=== PATIENT | female | born 1950 | race Caucasian/White ===

== ENCOUNTER 2017-10-16 06:16 | Inpatient (IN) | payer MEDICARE, OTHER ==
[2017-10-10 10:38] LABS: ABSOLUTE BASOPHILS 0.1 thou/uL (0.0-0.2); ABSOLUTE EOSINOPHILS 0.2 thou/uL (0.0-0.7); ABSOLUTE LYMPHOCYTES 2.1 thou/uL (0.8-5.3); ABSOLUTE MONOCYTES 0.4 thou/uL (0.0-1.2); ABSOLUTE NEUTROPHILS 3.5 thou/uL (1.6-8.1); BASOPHILS 0.8 %; EOSINOPHILS 3.1 %; HEMATOCRIT 37.7 % (37.0-47.0); HEMOGLOBIN 12.6 gm/dL (12.0-15.0); LYMPHOCYTES 33.7 %; MCH 32.1 pg (26.0-34.0); MCHC 33.3 g/dL (28.0-37.0); MCV 96.4 fL (80.0-100.0); MONOCYTES 7.1 %; MPV 7.9 fl. (7.2-11.1); NUCLEATED RBCS 0 /100WBC; PLATELET COUNT* 261 thou/uL (150-400); POLYS 55.3 %; RBC 3.91 mil/uL (4.20-5.00); RDW-CV 12.5 % (10.5-14.5); WBC 6.3 thou/uL (4.0-11.0)
[2017-10-10 10:44] LABS: APTT 25.4 Seconds (25.0-31.3); PROTIME 9.7 Seconds (9.20-11.50)
[2017-10-10 10:47] LABS: ALBUMIN 3.2 g/dL (3.4-5.0); ALKALINE PHOSPHATASE 71 U/L (46-116); ANION GAP < 0 mmol/L (7-16); BUN 23 mg/dL (7-18); CALCIUM 9.1 mg/dL (8.5-10.1); CHLORIDE 104 mmol/L (98-107); CO2 34 mmol/L (21-32); CREATININE 0.9 mg/dL (0.6-1.3); GLUCOSE 82 mg/dL (70-99); POTASSIUM 4.4 mmol/L (3.5-5.1); SGOT 17 U/L (15-37); SGPT 19 U/L (30-65); SODIUM 137 mmol/L (136-145); TOTAL BILIRUBIN 0.5 mg/dL (<0.1-1.0); TOTAL PROTEIN 6.5 g/dL (6.4-8.2)
[2017-10-10 11:42] LABS: ESR (SEDRATE) 20 mm/hr (0-30)
--- NOTE | 2017-10-10 17:55 | EKG ---
[place] [address] ELECTROCARDIOGRAM REPORT Name: WANDA HARMON Room: PRE IN [facility]#: [id number] Admission: Attend Phys: Gloria Mercado Discharge: Date of : 46 Report #: [id number] THIS REPORT FOR: //name// 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
[2017-10-11 06:07] LABS: GLYCOHEMOGLOBIN (HGB A1C) 5.1 % (4.8-5.6)
[~2017-10-16] VITALS: Ht 165.1 cm; Wt 77.1 kg
[~2017-10-16 06:16] MED LIST: ASPIRIN325 PO; CELEBREX 200 M200 M1 PO; CELEBREX 200 M200 MG PO; COLESTIPOL HCL1 G1 PO; GLUCOPHAGE XR500 MG PO; IBUPROFEN 200200 M1 PO; LISINOPRIL5 MG PO; MAXZIDE-25 MG1 EACH PO; METFORMIN HCL500 M2 PO; NORCO 5-325 TA1 EACH PO; PAXIL10 MG PO; PRAVACHOL20 MG PO; PRINIVIL5 MG PO; PROTONIX40 M1 PO; TRAMADOL 50 MG50 MG PO; VERAPAMIL ER180 MG PO; WELLBUTRIN XL300 MG PO; ZOLOFT 50 MG TA50 M1 PO; ZOLOFT100 MG PO
[2017-10-16 13:39] VITALS: BP 153/88
[2017-10-16] MEDS ORDERED: clobetasol PO (15:02)
[2017-10-16 19:40] VITALS: BP 112/50
[2017-10-16 23:00] VITALS: BP 82/39
[2017-10-17 02:03] VITALS: BP 90/49
[2017-10-17 05:00] LABS: HEMATOCRIT 28.7 % (37.0-47.0); HEMOGLOBIN 9.4 gm/dL (12.0-15.0)
[2017-10-17 05:08] LABS: CALCIUM 7.8 mg/dL (8.5-10.1)
[2017-10-17 05:54] VITALS: BP 82/46
[2017-10-17 07:45] VITALS: BP 94/44
[2017-10-17 15:27] VITALS: BP 115/48
[2017-10-17 21:00] VITALS: BP 105/35
[2017-10-18 00:13] VITALS: BP 132/64
[2017-10-18 04:08] VITALS: BP 146/74
[2017-10-18 05:43] LABS: HEMATOCRIT 25.2 % (37.0-47.0); HEMOGLOBIN 8.3 gm/dL (12.0-15.0)
[2017-10-18 08:00] VITALS: BP 129/35
[2017-10-18 13:47] VITALS: BP 156/71
[2017-10-18 16:00] VITALS: BP 117/60
[2017-10-18 19:45] VITALS: BP 111/51
[2017-10-19 01:05] VITALS: BP 115/51
[2017-10-19 04:53] VITALS: BP 101/48
[2017-10-19 08:00] VITALS: BP 110/52
[2017-10-19] MEDS ORDERED: NORCO 5-325 TA1 EACH PO (09:47)
[2017-10-19] MEDS ORDERED: ELIQUIS2.5 MG PO (09:48)
[2017-10-19 10:00] VITALS: BP 110/52
--- NOTE | 2017-10-31 07:10 | OP ---
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 POSTOPERATIVE DIAGNOSIS: Advanced degenerative joint disease with severe valgus deformity of left knee. PROCEDURE: Left total knee arthroplasty. SURGEON: Bassem Quintero DO ANESTHESIA: General endotracheal. FIRST ASSISTANTS: Donny Encinas and also Marcel Berg. I cannot find the name of the pathologist that was seen, so we will have to figure that out later, but just pathology consult requested. IMPLANTS: A Biomet total knee system with a 71 mm fixed cruciate tibial plate, a 65 mm PS open box femoral component, a 34 mm asymmetric patella, a 12 mm PS tibial bearing with E1 antioxidant, 2 bag of Palacos cement. ESTIMATED BLOOD LOSS: 175 mL. COMPLICATIONS: None. ANTIBIOTICS: Clindamycin 900 mg preop. One gram of vancomycin powder topical, 1 gram of TXA IV preop. INDICATION FOR SURGERY: The patient is a 66-year-old female who presents with severe valgus deformity to her left knee and also intractable pain. She has instability. She has failed conservative treatment to date including physical therapy, injections, anti-inflammatories, weight loss. Risks and complications were discussed in detail. These include but are not limited to neurovascular damage, infection, fracture, need for further surgery, failure of the prosthesis, recall of the prosthesis, allergy developed to prosthesis, deep vein thrombosis, pulmonary emboli, myocardial infarction, rhabdomyolysis, [place] [address] OPERATIVE REPORT Name: WANDA HARMON Veto Room: [address] IN [facility].#: [id number] Admission: 10/16/17 Attend Phys: Gloria Mercado Discharge: 10/19/17 Date of : 46 Report #: [id number] The patient has all questions answered and a signed informed consent has been attached to the chart, may refer to and her leg is marked preoperatively for timeout technique. SURGICAL PROCEDURE: The patient taken to the operative suite and placed on the operating table in supine position. Following a general endotracheal anesthetic, the left leg was prepped and draped in the usual sterile fashion with tourniquet in the proximal left thigh. A timeout technique is utilized to verify appropriate surgical site, procedure and concerns. The incision is then made midline through skin and subcutaneous tissue down to the quadriceps mechanism, extensor mechanism. A medial parapatellar incision was performed. The patella was everted. The knee is flexed to 120 degrees. There was severe valgus deformity to this knee with inability to fully extend. The soft tissue resection is very limited medially and more pronounced laterally for release. She has very hypoplastic femur, especially on the lateral femoral condyle both posteriorly as well as anteriorly. The distal femoral drill hole was performed. The intramedullary jamal was placed. The distal femoral cutting block was then fixated into place, approximately 10 mm from the most distal aspect of the femur. This was put at a 6-degree valgus cutting. The distal femur was then resected. It was necessary to add 2 more mm to this cut in order to get full extension after the tibia was resected as well. Looking at the knee, the external tibial guide was aligned in all planes and the proximal tibia was resected at 8 mm from the highest point on the tibia. Once resection was carried out, meniscal structures were removed. A 10 block was placed to the knee and full extension was then capable. The femur was then drawn out with the Whitesides line and the transcondylar axis as posterior condyles were unreliable in the guide. The 3-degree external rotation was found and the drill holes were made for a 65 mm femoral cut. The 4-in-1 cutting block was then impacted firmly into place. Anterior, posterior condylar cuts followed by anterior, posterior chamfer cuts were performed. Cutting block was removed. The box cutting guide was then inserted and impacted firmly into place. The box cut was performed with an oscillating saw to the appropriate depth. Then, attention was turned to the tibia. Once again, the tibia was measured. The tibial trial was aligned in all planes, pinned into place. A trial femoral component was then inserted. The knee was placed through range of motion with various sized spacers. Excellent range of motion was noted with the standard posterior stabilized insert. Final components were then obtained with the knee in extension. The patella was reamed with the Julia reaming system to a size 34 mm patella. The drill holes were performed. The patellar button was applied and tracking was anatomic. Once final components were obtained, copious irrigation carried out throughout the incision. All trial components were removed. The posterior aspect of the capsule was injected with the anesthetic solution. Final components were placed on the back table. Trial components were removed after preparing the tibia with the reaming system followed by the chamfer punch. The Palacos cement was then mixed. Cement was placed both on the final components as well as onto the tibial bone, femoral bone and patella itself. It was [facility] [address] [place] [address] OPERATIVE REPORT Name: WANDA HARMON Room: [address] M.R.#: [id number] Admission: 10/16/17 Attend Phys: Gloria Mercado Discharge: 10/19/17 Date of : 46 Report #: [id number] pressed into the interstices of the bone with pressurization. The tibia was impacted first followed by the femur, then the patellar button was applied. A spacer was placed to the knee. The knee was held at full extension. Patellar button was held with a clamp. All excess cement was removed sharply from all aspects of the knee. A trial of 12 mm spacer was utilized. This gave excellent range of motion, excellent stability through the entire arc of motion. Therefore, the final component was obtained. Prior to cement hardening or heating up, the final 12 mm spacer was placed into the knee, locked in place with a locking bar. The knee was then held at 90 degrees of flexion until complete cement hardening had occurred. Once cement hardening occurred, the knee was closed after sterile irrigation to the knee. Sprinkling vancomycin powder topically throughout and closing the quadriceps and extensor mechanism with a #1 Vicryl dynklh-xw-lhadn fascial suture followed by running #1 Quill suture throughout the entire extensor mechanism. The skin was reapproximated with 2-0 Monocryl subcutaneous sutures followed by 3-0 Stratafix subcuticular suture. Skin was reinforced with Dermabond glue and a Mepilex dressing was applied followed by thigh high ANJU hose. The patient tolerated the procedure well and was taken to recovery in stable condition. No complications encountered. <ELECTRONICALLY SIGNED> By: Yong Arreola DO 10/31/17 0710 1831 1915Bassem Quintero DO /nt
== END 2017-10-19 11:57 | disposition home health service (06) | DRG 470 ==
LOC: M.PRE 06:16 → M.TBA 12:42 → M.ORTHSURG 12:42 → M.PRE 13:49 → M.ORTHSURG 19:38
PROVIDERS: Internal Medicine; Orthopaedic Surgery; ADMIT Internal Medicine
PROC: 0SRD0J9 Replacement of Left Knee Joint with Synthetic Substitute, Cemented, Open Approach (ICD-10-PCS; principal; 2017-10-16)
DX: M17.12 Unilateral primary osteoarthritis, left knee (principal); D62 Acute posthemorrhagic anemia; I95.9 Hypotension, unspecified; I10 Essential (primary) hypertension; E88.81 Metabolic syndrome and other insulin resistance; E86.0 Dehydration; F41.9 Anxiety disorder, unspecified; K21.9 Gastro-esophageal reflux disease without esophagitis; E78.00 Pure hypercholesterolemia, unspecified; Z96.641 Presence of right artificial hip joint; M21.062 Valgus deformity, not elsewhere classified, left knee; Z88.6 Allergy status to analgesic agent; Z79.899 Other long term (current) drug therapy; Z79.1 Long term (current) use of non-steroidal anti-inflammatories (NSAID); Z79.84 Long term (current) use of oral hypoglycemic drugs; Z85.828 Personal history of other malignant neoplasm of skin; Z82.61 Family history of arthritis; Z82.49 Family history of ischemic heart disease and other diseases of the circulatory system; Z80.8 Family history of malignant neoplasm of other organs or systems

== ENCOUNTER → 2020-01-09 | Outpatient (CLI) | payer MEDICARE, OTHER ==
[~2020-01-09] MED LIST changes: +ELIQUIS2.5 MG PO; +clobetasol PO
== END ==
LOC: M.RAD 12-23 14:30
PROVIDERS: ATTEND Registered Nurse Diabetes Educator
DX: Z13.820 Encounter for screening for osteoporosis (principal); M85.88 Other specified disorders of bone density and structure, other site; E28.39 Other primary ovarian failure; Z78.0 Asymptomatic menopausal state

== ENCOUNTER → 2020-09-04 | Outpatient (CLI) | payer MEDICARE, OTHER | LOC: M.RAD 11:16 | PROVIDERS: ATTEND Registered Nurse Diabetes Educator | DX: Z12.31 Encounter for screening mammogram for malignant neoplasm of breast (principal) ==

== ENCOUNTER → 2020-09-10 | Outpatient (CLI) | payer MEDICARE, OTHER | LOC: M.MRI 12:42 | PROVIDERS: ATTEND Registered Nurse Diabetes Educator | DX: S46.211A Strain of muscle, fascia and tendon of other parts of biceps, right arm, initial encounter (principal); M75.101 Unspecified rotator cuff tear or rupture of right shoulder, not specified as traumatic; M19.011 Primary osteoarthritis, right shoulder; M75.81 Other shoulder lesions, right shoulder; M25.411 Effusion, right shoulder; M25.711 Osteophyte, right shoulder; M89.8X2 Other specified disorders of bone, upper arm; Z79.899 Other long term (current) drug therapy; X58.XXXA Exposure to other specified factors, initial encounter; Y93.89 Activity, other specified; Y92.89 Other specified places as the place of occurrence of the external cause; Y99.8 Other external cause status ==